=== PATIENT | female | born 1985 | race African-American/Black ===

== ENCOUNTER 2020-07-11 22:55 | Emergency (ER) | payer OTHER ==
[~2020-07-11] VITALS: Ht 170.2 cm; Wt 90.9 kg
[~2020-07-11 22:55] MED LIST: ALBU17AE27 IH; CYCL10 PO; IBUP-2070 PO
[2020-07-12] MEDS ORDERED: MAALOX/LIDOCAINE/NYSTATIN SUSP 5 ML ORAL.SYG MM ONE (00:15)
[2020-07-12] MEDS ORDERED: DEXAMETHASONE 4 MG TABLET PO ONE (00:15)
[2020-07-12 00:34] LABS: COVID AG,FIA SOURCE NASAL SWAB
[2020-07-12 00:44] LABS: RAPID GROUP A STREP NEGATIVE (NEGATIVE)
[2020-07-12 01:49] VITALS: BP 124/63
== END 2020-07-12 01:54 | disposition home or self-care (01) ==
LOC: EMS 22:58
DX: J02.8 Acute pharyngitis due to other specified organisms (principal); B97.89 Other viral agents as the cause of diseases classified elsewhere; Z20.828 Contact with and (suspected) exposure to other viral communicable diseases; J45.909 Unspecified asthma, uncomplicated; Z88.8 Allergy status to other drugs, medicaments and biological substances; Z79.899 Other long term (current) drug therapy
CPT/HCPCS: 87426; 87430

== ENCOUNTER 2025-02-26 11:57 | Emergency (ER) | payer OTHER ==
[~2025-02-26] VITALS: Ht 170.2 cm; Wt 108.2 kg
[~2025-02-26 11:57] MED LIST changes: -CYCL10 PO; -IBUP-2070 PO
[2025-02-26 12:00] VITALS: BP 141/78; PULSE 80; RESP 18; TEMP 98; O2SAT 100
[2025-02-26] MEDS: ACETAMINOPHEN/CODEINE 300-30 MG TABLET PO ONE (13:18)
[2025-02-26] MEDS: KETOROLAC TROMETHAMINE 60 MG/2 ML VIAL IM ONE (13:20)
[2025-02-26] MEDS ORDERED: IBUP-1554 PO (13:40)
[2025-02-26] MEDS ORDERED: ACET-2080 PO (13:40)
== END 2025-02-26 14:06 | disposition home or self-care (01) ==
LOC: EMS 12:00
DX: S80.01XA Contusion of right knee, initial encounter (principal); S80.02XA Contusion of left knee, initial encounter; S50.01XA Contusion of right elbow, initial encounter; J45.909 Unspecified asthma, uncomplicated; Z88.8 Allergy status to other drugs, medicaments and biological substances; W01.0XXA Fall on same level from slipping, tripping and stumbling without subsequent striking against object, initial encounter; Y93.89 Activity, other specified; Y92.89 Other specified places as the place of occurrence of the external cause; Y99.8 Other external cause status
CPT/HCPCS: 99283; 73562 ×2; 96372; J1885

== ENCOUNTER 2025-06-20 14:12 | Emergency (ER) | payer OTHER ==
[~2025-06-20] VITALS: Ht 170.2 cm; Wt 112.7 kg
[~2025-06-20 14:12] MED LIST changes: +ACET-2080 PO; +IBUP-1554 PO
[2025-06-20 14:25] VITALS: BP 130/72; PULSE 82; RESP 18; TEMP 98.5; O2SAT 98
[2025-06-20] MEDS: ACETAMINOPHEN 500 MG TABLET PO ONE (16:00)
[2025-06-20] MEDS: IBUPROFEN 400 MG TABLET PO ONE (16:01)
[2025-06-20] MEDS: LIDOCAINE 5% TRANSDERMAL PATCH TD ONE (16:01)
[2025-06-20] MEDS ORDERED: METH-812 PO (17:16)
[2025-06-20] MEDS ORDERED: LIDO-57 TP (17:16)
== END 2025-06-20 18:00 | disposition home or self-care (01) ==
LOC: EMS 14:48
DX: R51.9 Headache, unspecified (principal); M54.9 Dorsalgia, unspecified; F12.90 Cannabis use, unspecified, uncomplicated; J45.909 Unspecified asthma, uncomplicated; Z91.013 Allergy to seafood; Z87.59 Personal history of other complications of pregnancy, childbirth and the puerperium; Z85.9 Personal history of malignant neoplasm, unspecified; V49.40XA Driver injured in collision with unspecified motor vehicles in traffic accident, initial encounter; Y93.89 Activity, other specified; Y92.410 Unspecified street and highway as the place of occurrence of the external cause; Y99.8 Other external cause status
CPT/HCPCS: 99284; Z7502; Z7610